=== PATIENT | male | born 1965 | race Caucasian/White ===

== ENCOUNTER 2020-07-26 09:16 | Inpatient (IN) | payer SELFPAY ==
[~2020-07-26] VITALS: Ht 165.1 cm; Wt 81.6 kg
[2020-07-26 09:18] VITALS: Ht 165.1 cm; Wt 81.6 kg
[2020-07-26 10:09] LABS: BASOPHIL % 0.5 % (0.2-1.5); PLATELET COUNT 240 x10^3mcL (152-348); RED CELL DISTRIBUTION WIDTH 12.7 % (12.1-16.2)
[2020-07-26 10:30] LABS: CALCIUM 8.8 mg/dL (8.5-10.1); CARBON DIOXIDE 23.6 mmol/L (21-32); CHLORIDE SERUM 91 mmol/L (98-107); CREATININE SERUM 1.1 mg/dL (0.7-1.3); GFR1 > 60 mL/min; GLUCOSE SERUM 395 mg/dL (74-106); POTASSIUM SERUM 4.2 mmol/L (3.5-5.1); SODIUM SERUM 128 mmol/L (136-145)
[2020-07-26 10:36] LABS: ALKALINE PHOSPHATASE 85 U/L (46-116); ALT/SGPT 31 U/L (16-63); AST/SGOT 19 U/L (15-37); BILIRUBIN TOTAL 0.7 mg/dL (0.20-1.00); LACTIC DEHYDROGENASE (LDH) 279 U/L (100-190)
[2020-07-26 10:37] LABS: ALBUMIN 3.2 g/dL (3.4-5.0)
[2020-07-26 15:05] LABS: microscopic required? YES; urine erythrocyte TRACE (NEGATIVE)
[2020-07-27 09:59] LABS: BASOPHIL % 0.1 % (0.2-1.5); PLATELET COUNT 337 x10^3mcL (152-348); RED CELL DISTRIBUTION WIDTH 12.7 % (12.1-16.2)
[2020-07-27 16:34] LABS: CALCIUM 9.4 mg/dL (8.5-10.1); CARBON DIOXIDE 24.6 mmol/L (21-32); CHLORIDE SERUM 98 mmol/L (98-107); GFR1 > 60 mL/min; GLUCOSE SERUM 350 mg/dL (74-106); POTASSIUM SERUM 4.9 mmol/L (3.5-5.1); SODIUM SERUM 136 mmol/L (136-145)
[2020-07-28 08:22] LABS: BASOPHIL % 1.5 % (0.2-1.5); PLATELET COUNT 376 x10^3mcL (152-348); RED CELL DISTRIBUTION WIDTH 12.8 % (12.1-16.2)
[2020-07-28 08:45] LABS: CARBON DIOXIDE 22.3 mmol/L (21-32); CHLORIDE SERUM 95 mmol/L (98-107); GFR1 > 60 mL/min; GLUCOSE SERUM 417 mg/dL (74-106); POTASSIUM SERUM 4.6 mmol/L (3.5-5.1); SODIUM SERUM 132 mmol/L (136-145)
[2020-07-28 19:28] VITALS: BP 105/70
[2020-07-28 21:11] VITALS: BP 121/71
[2020-07-29 05:12] VITALS: BP 123/74
[2020-07-29 08:18] LABS: BASOPHIL % 0.2 % (0.2-1.5); RED CELL DISTRIBUTION WIDTH 12.7 % (12.1-16.2)
[2020-07-29 08:39] LABS: C REACTIVE PROTEIN 3.2 mg/dL (<=0.9); CALCIUM 9.4 mg/dL (8.5-10.1); CARBON DIOXIDE 23.6 mmol/L (21-32); CHLORIDE SERUM 95 mmol/L (98-107); GFR1 > 60 mL/min; GLUCOSE SERUM 397 mg/dL (74-106); POTASSIUM SERUM 4.6 mmol/L (3.5-5.1); SODIUM SERUM 134 mmol/L (136-145)
[2020-07-29 12:29] LABS: PLATELET COUNT 461 x10^3mcL (152-348)
[2020-07-29 12:58] VITALS: BP 104/67
[2020-07-29 16:39] VITALS: BP 116/77
[2020-07-29 21:13] VITALS: BP 114/79
[2020-07-30 05:51] VITALS: BP 115/78
[2020-07-30 07:06] LABS: BASOPHIL % 0.3 % (0.2-1.5); RED CELL DISTRIBUTION WIDTH 12.5 % (12.1-16.2)
[2020-07-30 07:13] LABS: PLATELET COUNT 455 x10^3mcL (152-348)
[2020-07-30 07:40] LABS: C REACTIVE PROTEIN 1.5 mg/dL (<=0.9); CALCIUM 9.7 mg/dL (8.5-10.1); CARBON DIOXIDE 27.8 mmol/L (21-32); CHLORIDE SERUM 96 mmol/L (98-107); CREATININE SERUM 0.9 mg/dL (0.7-1.3); GFR1 > 60 mL/min; GLUCOSE SERUM 297 mg/dL (74-106); POTASSIUM SERUM 4.3 mmol/L (3.5-5.1); SODIUM SERUM 132 mmol/L (136-145)
[2020-07-30 08:49] VITALS: BP 114/78
[2020-07-30 12:10] VITALS: BP 113/69
[2020-07-30 16:41] VITALS: BP 105/68
[2020-07-30 20:17] VITALS: BP 113/73
[2020-07-31 04:41] VITALS: BP 107/64
[2020-07-31 07:51] LABS: BASOPHIL % 0.2 % (0.2-1.5); RED CELL DISTRIBUTION WIDTH 12.5 % (12.1-16.2)
[2020-07-31 08:06] LABS: CARBON DIOXIDE 26.2 mmol/L (21-32); CHLORIDE SERUM 99 mmol/L (98-107); CREATININE SERUM 0.7 mg/dL (0.7-1.3); GFR1 > 60 mL/min; GLUCOSE SERUM 165 mg/dL (74-106); POTASSIUM SERUM 3.6 mmol/L (3.5-5.1); SODIUM SERUM 134 mmol/L (136-145)
[2020-07-31 08:10] LABS: PLATELET COUNT 431 x10^3mcL (152-348)
[2020-07-31 08:57] VITALS: BP 101/72
[2020-07-31 12:09] VITALS: BP 93/61
[2020-07-31 17:14] VITALS: BP 105/69
[2020-07-31 20:45] VITALS: BP 98/62
[2020-08-01 05:30] VITALS: BP 107/60
[2020-08-01 08:25] VITALS: BP 97/59
[2020-08-01 08:37] LABS: CALCIUM 8.9 mg/dL (8.5-10.1); CARBON DIOXIDE 26.7 mmol/L (21-32); CHLORIDE SERUM 100 mmol/L (98-107); CREATININE SERUM 0.8 mg/dL (0.7-1.3); GFR1 > 60 mL/min; GLUCOSE SERUM 168 mg/dL (74-106); POTASSIUM SERUM 3.4 mmol/L (3.5-5.1); SODIUM SERUM 136 mmol/L (136-145)
[2020-08-01 08:56] LABS: BASOPHIL % 0.2 % (0.2-1.5); PLATELET COUNT 377 x10^3mcL (152-348); RED CELL DISTRIBUTION WIDTH 12.5 % (12.1-16.2)
[2020-08-01] MEDS ORDERED: VENTOLIN H0.09 MG/A1 INH (10:46)
[2020-08-01] MEDS ORDERED: ACCU-CHEK1 EAC2 MC (10:46)
[2020-08-01] MEDS ORDERED: DECADRON4 MG PO (10:46)
[2020-08-01] MEDS ORDERED: GLUCOPHAGE500 MG PO (10:46)
[2020-08-01 12:18] VITALS: BP 99/63
[2020-08-01 12:26] VITALS: BP 99/63
== END 2020-08-01 14:25 | disposition home or self-care (01) | DRG 177 ==
LOC: ED 09:16 → DU 10:56
PROVIDERS: Emergency Medicine; Internal Medicine; ADMIT Family Medicine; ATTEND Family Medicine
DX: U07.1 COVID-19 (principal); J12.89 Other viral pneumonia; J96.01 Acute respiratory failure with hypoxia
CPT/HCPCS: 36600; 82962; 83880; 85378; 87804; G0378; J0456; J0696; J1100; J1650; J1815; J7030; J7050; U0003